=== PATIENT | female | born 1940 | race Caucasian/White ===

== ENCOUNTER 2019-03-13 12:06 | Observation (INO) | payer MEDICARE, OTHER ==
[2019-03-13 13:29] LABS: Bilirubin Negative (Negative); Blood, Urine Negative (Negative); Clarity Clear (Clear); Glucose, Urine (Dipstick) Normal (Negative); Leukocyte 250 Leu/uL (Negative); Nitrite Negative (Negative); Protein, Urine (Dipstick) Negative (Neg-Trace); RBC/HPF 0-3 HPF (0-3); Squamous Epithelial 0-3 HPF (0-3); Urobilinogen Normal mg/dL (Less than 2)
[2019-03-13 13:31] LABS: Bacteria/HPF 4+ HPF (None Seen)
[2019-03-13 13:46] LABS: #Basophils 0.1 thou/uL (0.0-0.2); #Eosinphils 0.2 thou/uL (0.0-0.7); #Lymphocytes 2.1 thou/uL (1.20-3.40); #Monocytes 0.5 thou/uL (0.11-0.59); #Neutrophils 4.2 thou/uL (1.40-6.50); %Basophils 1.5 % (0.0-1.0); %Eosinophils 2.8 % (0.0-10.0); %Lymphocytes 29.4 % (21.0-51.0); %Monocytes 6.9 % (0.0-10.0); %Neutrophils 59.4 % (42.0-75.0); Hemoglobin 15.4 g/dL (12.0-16.0); Mean Corpuscular HGB CONC 33.7 g/dL (32.0-36.0); Mean Corpuscular Hemoglobin 30.2 pg (27.0-31.0); Mean Corpuscular Volume 89.7 fL (78.0-98.0); Mean Platelet Volume 8.8 fL (7.4-10.4); Platelet Count 224 thou/uL (130-400); RBC Distribution Width 11.8 % (11.5-14.5); Red Blood Cell (RBC) Count 5.09 mill/uL (4.20-5.40); White Blood Cell (WBC) Count 7.1 thou/uL (4.8-10.8)
[2019-03-13 14:02] LABS: ALT (SGPT) 25 U/L (8-55); AST (SGOT) 20 U/L (5-34); Albumin 4.1 g/dL (3.4-4.8); Alkaline Phosphatase 97 U/L (40-110); Anion Gap 12 mmol/L (10-20); BUN (Urea Nitrogen) 11 mg/dL (9.8-20.1); Bilirubin, Total 0.4 mg/dL (0.2-1.2); Calc. Creatinine Clearance 0 mL/min (70-130); Calcium 9.3 mg/dL (7.8-10.44); Carbon Dioxide 26 mmol/L (23-31); Chloride 105 mmol/L (98-107); Estimated GFR-MDRD 82; Globulin 2.9 g/dL (2.4-3.5); Glucose 102 mg/dL (83-110); Potassium 3.8 mmol/L (3.5-5.1); Sodium 139 mmol/L (136-145)
[2019-03-13] MEDS ORDERED: Senokot S 8.6-50 MG TAB PO PRN (17:03)
[2019-03-13] MEDS ORDERED: Sodium Chloride 0.9% 1,000 ML IV SCH (17:15)
[2019-03-13] MEDS ORDERED: Aspirin 325 mg Enteric Coated Tablet PO SCH (18:00)
[2019-03-13] MEDS ORDERED: cefTRIAXone\\ROCEPHIN 1 GM in Sodium Chloride 0.9% 100 ML IVPB SCH (18:00)
[2019-03-13 21:38] VITALS: BMI 26.4
[2019-03-13] MEDS: Famotidine 20 MG TAB PO SCH (23:15)
[2019-03-13] MEDS: Meclizine HCl 25 MG TAB PO SCH (23:15)
[2019-03-13] MEDS: cefTRIAXone\\ROCEPHIN 1 GM in Sodium Chloride 0.9% 100 ML IVPB SCH (23:15)
[2019-03-13] MEDS: Acetaminophen With Codeine [Tylenol With Codeine #4] 1 TABLET PO PRN (23:42)
--- NOTE | 2019-03-14 02:24 | HP ---
PRIMARY CARE PHYSICIAN: None. NEUROLOGIST: Dr. Escalona. FIRE TENDER: Dr. Boone. CHIEF COMPLAINT: Dizziness, syncope. HISTORY OF PRESENT ILLNESS: Ms. Hinton is an 79-year-old female who reports to the emergency room today for evaluation of nausea, vomiting, dizziness, syncope. Daughter who is at bedside reports that she has been having increasing episodes of syncope when she goes from laying down to a sitting position. Reports that it is intermittent, but mostly with change in position. The daughter also reports that she has been having some fluctuations in her BP. Reports that she was recently discharged from [facility], was given a diagnosis of vertigo and sent home. Daughter is concerned that in addition to the vertigo she is having the syncopal episodes where everything goes black and she collapses. She did have an appointment tomorrow with Dr. Mallory, ENT for the vertigo, but as syncope episodes keep occurring, she brought her to the emergency room at [facility] for further evaluation. She did have a CT brain and a CTA. The patient with a history of hyperlipidemia, high cholesterol, hypertension, uterine cancer. CT of the brain and CTA report in the records from [facility] that daughter brought were negative for acute findings. The patient will be admitted to telemetry stroke for further evaluation. REVIEW OF SYSTEMS: Information collected from emergency record and from daughter and the patient reports profound dizziness, especially when she changes positions or tries to stand up or sit up. Reports nausea, vomiting. PAST MEDICAL HISTORY: See HPI. SURGICAL HISTORY: Colonoscopy, total hysterectomy. PSYCH HISTORY: History of dementia. SOCIAL HISTORY: Lives with her daughter. Denies any alcohol or drug use. No smoking history. ALLERGIES: HYDROCODONE, PHENERGAN, TRAMADOL. CURRENT MEDICATIONS: 1. Tylenol with Codeine 1 tablet p.o. q.6 hours as needed. 2. Amlodipine 5 mg p.o. b.i.d. 3. Prilosec 40 mg p.o. daily. 4. Levothyroxine 25 mcg p.o. daily. 5. Losartan 50 mg p.o. daily. 6. Antivert 25 mg p.o. t.i.d. 7. Namenda 10 mg p.o. b.i.d. 8. Metoprolol 100 mg p.o. daily. 9. Ondansetron 8 mg p.o. q.8 hours. 10. Solifenacin succinate 5 mg p.o. at bedtime. The patient is a full code. Daughter is surrogate decision maker. PHYSICAL EXAMINATION: VITAL SIGNS: Blood pressure 170/87, pulse is 80, respirations 14, temperature is 97.9, pO2 sats are 99% on room air. CONSTITUTIONAL: The patient appears ill, although in no apparent distress. She is alert and oriented x2. HEENT: Atraumatic and normocephalic. Eyes, pupils are equally round and reactive to light. Extraocular muscles are intact. The patient is blind in left eye. ENT: Mouth exam is normal. Mucous membranes are moist. NECK: Neck normal range of motion. Trachea is midline. RESPIRATORY: Chest breath sounds are clear. CHEST: Chest expansion is equal. CARDIOVASCULAR: Heart regular rate and rhythm. Heart sounds are normal. ABDOMEN: Nontender. Bowel sounds are heard. No CVA tenderness. BACK: Normal range of motion. EXTREMITIES: Upper extremity normal inspection, normal range of motion. Radial pulses are equal. Lower extremity normal inspection, normal range of motion. Pedal pulses are normal. There is no edema noted. NEUROLOGIC: The patient is oriented x2. No distress. Speech is normal. No focal motor or sensory deficits. SKIN: Warm, dry, normal in color that is visualized. PSYCHIATRIC: She has a normal affect. IMAGING: EKG in the emergency room showed normal sinus rhythm, beats 73, ST segments normal, T-waves normal. PLAN/ASSESSMENT: 1. Recurrent vertigo with syncope. We will obtain an MRI of the brain without contrast. We will ask Dr. Escalona to consult. Obtain an echocardiogram. CT and CTA have recently been done, records are with the patient. We have requested release of information for all the records from [facility] during the last hospitalization. Depending on Dr. Escalona's assessment, ENT followup may be recommended. We will continue the meclizine 25 mg q.8 hours as scheduled. Add some Zofran as needed for the nausea gentle hydration 75 mL per hour x1 bag. Aspirin 325 mg p.o. daily. 2. Urinary tract infection. Rocephin 1 g q.12. urine has been sent off for culture. 3. History of hypertension. We will trend. Add home medications. 4. History of dementia. This appears at baseline. We will add home medications. 5. History of gastroesophageal reflux disease. We will restart Protonix. 6. We have asked PT/OT to evaluate. 7. Gastrointestinal and deep venous thrombosis prophylaxis have been started. 8. Hospital course dependent on clinical findings. Job ID: [id number]
[2019-03-14 05:00] LABS: #Basophils 0.1 thou/uL (0.0-0.2); #Eosinphils 0.2 thou/uL (0.0-0.7); #Lymphocytes 1.9 thou/uL (1.20-3.40); #Monocytes 0.5 thou/uL (0.11-0.59); #Neutrophils 3.1 thou/uL (1.40-6.50); %Basophils 0.9 % (0.0-1.0); %Eosinophils 2.7 % (0.0-10.0); %Lymphocytes 33.5 % (21.0-51.0); %Monocytes 8.7 % (0.0-10.0); %Neutrophils 54.3 % (42.0-75.0); Hemoglobin 12.5 g/dL (12.0-16.0); Mean Corpuscular Hemoglobin 28.7 pg (27.0-31.0); Mean Corpuscular Volume 89.6 fL (78.0-98.0); Mean Platelet Volume 8.7 fL (7.4-10.4); Platelet Count 204 thou/uL (130-400); RBC Distribution Width 11.8 % (11.5-14.5); Red Blood Cell (RBC) Count 4.37 mill/uL (4.20-5.40); White Blood Cell (WBC) Count 5.7 thou/uL (4.8-10.8)
[2019-03-14 05:23] LABS: Anion Gap 9 mmol/L (10-20); BUN (Urea Nitrogen) 13 mg/dL (9.8-20.1); Calc. Creatinine Clearance 78 mL/min (70-130); Calcium 8.6 mg/dL (7.8-10.44); Carbon Dioxide 26 mmol/L (23-31); Chloride 105 mmol/L (98-107); Estimated GFR-MDRD 83; Glucose 97 mg/dL (83-110); Potassium 3.4 mmol/L (3.5-5.1); Sodium 137 mmol/L (136-145)
[2019-03-14] MEDS: Meclizine HCl 25 MG TAB PO SCH ×3 (06:17→21:56)
[2019-03-14] MEDS: Levothyroxine Sodium 25 MCG TAB PO SCH (06:17)
[2019-03-14] MEDS: Amlodipine 5 MG TAB PO SCH ×2 (08:32→21:57)
[2019-03-14] MEDS: Trospium 20 MG TAB PO SCH ×2 (08:32→21:57)
[2019-03-14] MEDS: Aspirin 325 mg Enteric Coated Tablet PO SCH (08:32)
[2019-03-14] MEDS: Enoxaparin Sodium 40 MG/0.4 ML SYRINGE SC SCH (08:32)
[2019-03-14] MEDS: Famotidine 20 MG TAB PO SCH ×2 (08:32→21:57)
[2019-03-14] MEDS: Losartan 25 MG TAB PO SCH (08:33)
--- NOTE | 2019-03-14 10:59 | MRI ---
MRI BRAIN WITHOUT CONTRAST: HISTORY: Dizziness, syncope COMPARISON: 01/15/2013 FINDINGS: No restricted diffusion is seen. There are multiple foci of T2 prolongation in the periventricular wh ite matter, consistent with chronic small vessel ischemic disease. The ventricular size is appropriate and the basilar cisterns are patent. No evidence of acute infarct, hemorrhage, midline shift or abnormal extra-axial fluid collections is seen. A partially empty sella is again seen. There is mucosal disease in the paranasal sinuses. IMPRESSION: No evidence of acute intracranial process.
[2019-03-14] MEDS: Acetaminophen With Codeine [Tylenol With Codeine #4] 1 TABLET PO PRN (12:15)
--- NOTE | 2019-03-14 19:37 | PDOC.HOSPP ---
- Subjective Encounter Date: 03/14/19 Encounter Time: 19:37 Subjective: Patient seen and examined for dizziness/syncope. No new syncope since admission. No new complaints. No overnight events - Objective Vital Signs & Weight: Vital Signs (12 hours) Temp Pulse Resp BP BP BP BP 03/14/19 15:30 97.6 F 56 L 16 124/57 L 03/14/19 11:25 98.1 F 69 18 169/74 H 03/14/19 09:55 170/81 H 179/88 H 03/14/19 08:20 98 F 79 18 153/70 H BP Pulse Ox 03/14/19 15:30 95 03/14/19 11:25 94 L 03/14/19 09:55 146/70 H 03/14/19 08:20 96 Weight Admit Weight 164 lb 1.6 oz Weight 164 lb 1.6 oz I&O: 03/13/19 03/14/19 03/15/19 06:59 06:59 06:59 Intake Total 525 Balance 525 Result Diagrams: 03/14/19 04:36 03/14/19 04:36 EKG Reviewed by me: Yes (Tele SR) Hospitalist ROS - Review of Systems Respiratory: denies: cough, dry, shortness of breath, hemoptysis, SOB with excertion, pleuritic pain, sputum, wheezing, other Cardiovascular: denies: chest pain, palpitations, orthopnea, paroxysmal noc. dyspnea, edema, light headedness, other - Medication Medications: Active Medications Generic Name Dose Route Start Last Admin Trade Name Freq PRN Reason Stop Dose Admin Amlodipine Besylate 5 mg 03/14/19 09:00 03/14/19 08:32 Norvasc PO 5 mg BID BEST Administration Aspirin 325 mg 03/14/19 09:00 03/14/19 08:32 Ecotrin PO 325 mg DAILY BEST Administration Enoxaparin Sodium 40 mg 03/14/19 09:00 03/14/19 08:32 Lovenox SC 40 mg 0900 BEST Administration Famotidine 20 mg 03/13/19 21:00 03/14/19 08:32 Pepcid PO 20 mg BID BEST Administration Ceftriaxone Sodium 1 gm/ 100 mls @ 200 mls/hr 03/13/19 23:00 03/13/19 23:15 Sodium Chloride IVPB 100 mls 2300 BEST Administration Levothyroxine Sodium 25 mcg 03/14/19 06:00 03/14/19 06:17 Synthroid PO 25 mcg 0600 BEST Administration Losartan Potassium 50 mg 03/14/19 09:00 03/14/19 08:33 Cozaar PO 50 mg DAILY BEST Administration Meclizine HCl 25 mg 03/13/19 22:00 03/14/19 14:22 Antivert PO 25 mg Q8HR BEST Administration Memantine 10 mg 03/14/19 09:00 03/14/19 08:32 Namenda PO 10 mg BID BEST Administration Metoprolol Succinate 100 mg 03/14/19 09:00 03/14/19 08:32 Toprol Xl PO 100 mg DAILY BEST Administration Pantoprazole Sodium 40 mg 03/14/19 09:00 03/14/19 08:33 Protonix PO 40 mg DAILY BEST Administration Acetaminophen With 0 each 03/13/19 22:41 03/14/19 12:15 Codeine [Tylenol PO 1 each With Codeine #4] 1 Q6HR PRN Administration Tablet Pain Trospium 20 mg 03/14/19 09:00 03/14/19 08:32 Trospium PO 20 mg BID BEST Administration - Exam General Appearance: NAD Neck: supple, no JVD Heart: RRR, no gallops Respiratory: CTAB, no rales Gastrointestinal: soft, non-distended, normal bowel sounds Extremities: no edema Hosp A/P - Plan DVT proph w/SCDs Recurrent Syncope ?etio - prob due to Orthostatic hypotension r/o Cardiac arrhythmia UTI Chronic dizziness/Vertigo Dementia HTN HLD GERD Physical deconditioning PLAN: EP consult per family req Cont Ceftriaxone for UTI Had event monitor 2 years ago - no arrhythmia per family report PT/OT Orthostatic vitals daily Cont other meds Negative stress test in September 2018 per family report
[2019-03-14] MEDS ORDERED: Potassium Chloride 10 MEQ TAB PO SCH (19:45)
[2019-03-14] MEDS ORDERED: hydrALAZINE 20 MG/ML VIAL SLOW IVP PRN (19:47)
[2019-03-14] MEDS: cefTRIAXone\\ROCEPHIN 1 GM in Sodium Chloride 0.9% 100 ML IVPB SCH (23:56)
--- NOTE | 2019-03-15 00:19 | CON ---
DATE OF CONSULTATION: 03/14/2019 CONSULTING PHYSICIAN: Hospitalist Service. IMPRESSION: Ms. Hinton has had multiple episodes of near syncope and syncopal episode suggestive of a cardiovascular etiology. Her neurologic workup is otherwise negative. PLAN: Continue cardiovascular monitoring and blood pressure monitoring. HISTORY OF PRESENT ILLNESS: Ms. Hinton is an 79-year-old woman whom I have seen in the office for dizziness. She reports multiple episodes of lightheadedness and syncope while at home. Her daughter notes that when she is in the midst of an episode, she becomes pale, cold, and clammy. She has collapsed on several occasions. There was no convulsive activity associated with these. She had a previous workup including a CT of the brain and CT angiogram, both of which were normal. She is currently on a monitor. Her orthostatic vital signs showed a 25-point drop in the systolic and 10-point drop in the diastolic pressures with standing. She was asymptomatic at that point. PHYSICAL EXAMINATION: Her neurologic exam is unremarkable. SUMMARY: We would continue blood pressure and EKG monitoring with more orthostatic changes to elicit symptomatology to better define her condition. Job ID: [id number]
[2019-03-15] MEDS ORDERED: Meclizine HCl 25 MG TAB ONE (05:43)
[2019-03-15] MEDS ORDERED: Levothyroxine Sodium 25 MCG TAB ONE (05:44)
[2019-03-15] MEDS: Aspirin 325 mg Enteric Coated Tablet PO SCH ×2 (09:17→12:40)
[2019-03-15] MEDS: Amlodipine 5 MG TAB PO SCH ×3 (09:17→21:29)
[2019-03-15] MEDS: Trospium 20 MG TAB PO SCH ×4 (09:17→21:29)
[2019-03-15] MEDS: Famotidine 20 MG TAB PO SCH ×3 (09:17→21:30)
[2019-03-15] MEDS: Losartan 25 MG TAB PO SCH ×2 (09:17→12:39)
[2019-03-15] MEDS: Enoxaparin Sodium 40 MG/0.4 ML SYRINGE SC SCH ×2 (10:52→12:40)
[2019-03-15] MEDS: Levothyroxine Sodium 25 MCG TAB PO SCH (12:39)
[2019-03-15] MEDS: Meclizine HCl 25 MG TAB PO SCH ×3 (12:39→21:29)
--- NOTE | 2019-03-15 14:52 | PDOC.HOSPP ---
- Subjective Encounter Date: 03/15/19 Encounter Time: 09:30 Subjective: Patient seen and examined for syncope/dizziness. No changes in symptoms. No new complaints. No overnight events - Objective Vital Signs & Weight: Vital Signs (12 hours) Temp Pulse Pulse Pulse Resp BP BP 03/15/19 12:41 66 03/15/19 11:25 97.6 F 67 16 03/15/19 10:24 72 73 185/87 H 195/88 H 03/15/19 09:36 72 70 154/74 H 183/80 H 03/15/19 07:48 97.9 F 66 16 BP Pulse Ox 03/15/19 12:41 03/15/19 11:25 140/68 94 L 03/15/19 10:24 03/15/19 09:36 03/15/19 07:48 154/73 H 95 Weight Admit Weight 164 lb 1.6 oz Weight 164 lb 1.6 oz I&O: 03/14/19 03/15/19 03/16/19 06:59 06:59 06:59 Intake Total 525 2420 Balance 525 2420 Result Diagrams: 03/14/19 04:36 03/14/19 04:36 Radiology Reviewed by me: Yes (MRI brain - no CVA) EKG Reviewed by me: Yes (Tele SR) Hospitalist ROS - Review of Systems Respiratory: denies: cough, dry, shortness of breath, hemoptysis, SOB with excertion, pleuritic pain, sputum, wheezing, other Cardiovascular: denies: chest pain, palpitations, orthopnea, paroxysmal noc. dyspnea, edema, light headedness, other Gastrointestinal: reports: nausea. denies: vomiting, abdominal pain, diarrhea, constipation, melena, hematochezia, other - Medication Medications: Active Medications Generic Name Dose Route Start Last Admin Trade Name Freq PRN Reason Stop Dose Admin Amlodipine Besylate 5 mg 03/14/19 09:00 03/15/19 12:41 Norvasc PO Not Given BID [facility] Aspirin 325 mg 03/14/19 09:00 03/15/19 12:40 Ecotrin PO Not Given DAILY [facility] Enoxaparin Sodium 40 mg 03/14/19 09:00 03/15/19 12:40 Lovenox SC Not Given 0900 [facility] Famotidine 20 mg 03/13/19 21:00 03/15/19 12:41 Pepcid PO Not Given BID [facility] Ceftriaxone Sodium 1 gm/ 100 mls @ 200 mls/hr 03/13/19 23:00 03/14/19 23:56 Sodium Chloride IVPB 100 mls 2300 [facility] Administration Levothyroxine Sodium 25 mcg 03/14/19 06:00 03/15/19 12:39 Synthroid PO Not Given 0600 [facility] Losartan Potassium 50 mg 03/14/19 09:00 03/15/19 12:39 Cozaar PO Not Given DAILY [facility] Meclizine HCl 25 mg 03/13/19 22:00 03/15/19 14:14 Antivert PO 25 mg Q8HR BEST Administration Memantine 10 mg 03/14/19 09:00 03/15/19 12:40 Namenda PO Not Given BID [facility] Metoprolol Succinate 100 mg 03/14/19 09:00 03/15/19 12:42 Toprol Xl PO Not Given DAILY [facility] Pantoprazole Sodium 40 mg 03/14/19 09:00 03/15/19 12:42 Protonix PO Not Given DAILY [facility] Acetaminophen With 0 each 03/13/19 22:41 03/14/19 12:15 Codeine [Tylenol PO 1 each With Codeine #4] 1 Q6HR PRN Administration Tablet Pain Trospium 20 mg 03/14/19 09:00 03/15/19 12:42 Trospium PO Not Given BID BEST - Exam General Appearance: NAD Heart: RRR, no gallops Respiratory: no wheezes, no rales, no ronchi Gastrointestinal: soft, non-distended, normal bowel sounds Extremities: no edema Hosp A/P - Plan DVT proph w/lovenox, DVT proph w/SCDs Recurrent Syncope ?etio - prob due to Orthostatic hypotension r/o Cardiac arrhythmia UTI Chronic dizziness/Vertigo Dementia HTN HLD GERD Physical deconditioning PLAN: Await EP input - Pt is NPO Cont IV Ceftriaxone for UTI Cont PT/OT Repeat Orthostatic later today Cont other meds Inpt Rehab eval
--- NOTE | 2019-03-15 17:47 | CON ---
DATE OF CONSULTATION: REQUESTING PHYSICIAN: Dr. Desir. REASON FOR REQUEST: Syncope. HISTORY OF PRESENT ILLNESS: Ms. Hinton is an 79-year-old with a history of Alzheimer's dementia, vertigo, colon cancer, hypertension, hypothyroidism, who was admitted to the hospital after a near syncopal episode. Apparently, she was at the breakfast table, talking with her son, became weak and dizzy and slumped over the table. She reportedly did not fully lose consciousness. She has had a near syncopal episode over approximately 3-year period and underwent reportedly essentially normal workup other than for vertigo and inner ear type disease. Currently, she states that she still has episodes of dizziness and blacking out when she sits up or goes to a near standing. PAST MEDICAL HISTORY: Significant for Alzheimer's dementia, colon cancer, diverticulitis, gastroesophageal reflux disease, hypertension, osteoarthritis, thyroid disease, and uterine cancer. MEDICATIONS: Include: 1. Tylenol with codeine. 2. Amlodipine. 3. Aspirin. 4. Esomeprazole. 5. Levothyroxine. 6. Losartan. 7. Memantine. 8. Metoprolol. 9. Celecoxib. 10. Potassium. 11. Pravastatin. ALLERGIES: SHE IS ALLERGIC TO PHENERGAN, HYDROCODONE, STATINS, TRAMADOL, AND DOXYCYCLINE. FAMILY HISTORY: No early coronary artery disease or sudden cardiac . SOCIAL HISTORY: She does not drink, smoke, uses illicit medications. REVIEW OF SYSTEMS: Reviewed. She denies nausea, vomiting, diarrhea, fever, chills, or change in vision or hearing. All others were negative other than included in the HPI. PHYSICAL EXAMINATION: VITAL SIGNS: She is afebrile. Pulse is 86, blood pressure 159/76. HEENT: Pupils equally round and react to light and accommodation. Extraocular movements are intact. Nose; midline septum. No rhinorrhea or epistaxis. Throat is moist erythema or exudate. NECK: Supple without lymphadenopathy, JVD, or goiter. HEART: Regular rate and rhythm without murmur, gallop, or rub. LUNGS: Clear to auscultation and percussion bilaterally. ABDOMEN: Soft, nontender, and nondistended. Present bowel sounds. EXTREMITIES: Without cyanosis, clubbing, or edema. NEUROLOGIC: Cranial nerves 2 through 12 are grossly intact. Motor strength 5/5 throughout. DIAGNOSTICS: Electrocardiogram, sinus rhythm, no significant ST or T-wave changes. Telemetry monitoring shows no significant arrhythmias. IMPRESSION: 1. Near syncope. 2. History of vertigo. 3. Alzheimer's dementia. RECOMMENDATIONS: Ms. Hinton has had multiple episodes of near syncope as well as a vertigo type symptoms. I do not see significant arrhythmic cause for this, particularly since she is asymptomatic with normal rhythm. I think her arrhythmia risk is low. If there is more concern for this, consideration could be given to an implantable monitor. However, I believe her symptoms are more likely related to either blood pressure or vertigo issues. Job ID: [id number]
[2019-03-15 17:52] LABS: Anion Gap 8 mmol/L (10-20); BUN (Urea Nitrogen) 11 mg/dL (9.8-20.1); Calc. Creatinine Clearance 78 mL/min (70-130); Calcium 9.2 mg/dL (7.8-10.44); Carbon Dioxide 30 mmol/L (23-31); Chloride 104 mmol/L (98-107); Estimated GFR-MDRD 83; Glucose 95 mg/dL (83-110); Potassium 3.6 mmol/L (3.5-5.1); Sodium 138 mmol/L (136-145)
[2019-03-16] MEDS: cefTRIAXone\\ROCEPHIN 1 GM in Sodium Chloride 0.9% 100 ML IVPB SCH (00:16)
[2019-03-16] MEDS: Levothyroxine Sodium 25 MCG TAB PO SCH (05:54)
[2019-03-16] MEDS: Meclizine HCl 25 MG TAB PO SCH ×2 (05:54→14:07)
[2019-03-16] MEDS: Aspirin 325 mg Enteric Coated Tablet PO SCH (08:28)
[2019-03-16] MEDS: Famotidine 20 MG TAB PO SCH (08:28)
[2019-03-16] MEDS: Amlodipine 5 MG TAB PO SCH (08:28)
[2019-03-16] MEDS: Losartan 25 MG TAB PO SCH (08:29)
[2019-03-16] MEDS: Trospium 20 MG TAB PO SCH (08:29)
[2019-03-16] MEDS: Enoxaparin Sodium 40 MG/0.4 ML SYRINGE SC SCH (08:29)
[2019-03-16] MEDS ORDERED: Ondansetron ODT 4 MG TAB PO SCH (13:15)
[2019-03-16 15:50] VITALS: BP 143/74; TEMP 97.9
--- NOTE | 2019-03-17 09:52 | DIS ---
DATE OF ADMISSION: 03/13/2019 DATE OF DISCHARGE: 03/16/2019 DISCHARGE DISPOSITION: Inpatient rehab. The patient was seen and examined on the day of discharge. Denies any new complaints. No significant improvement in vertigo/dizziness. DISCHARGE MEDICATIONS: 1. Omnicef 300 mg twice a day for next 3 days. 2. Meclizine 12.5 mg 3 times daily. All other home medications were left unchanged. BRIEF HOSPITAL COURSE: The patient is an 79-year-old female with chronic dizziness and vertigo, presented to the hospital on 14 March 2019 with dizziness with a syncopal episode. She was discharged from [facility] recently. Please refer to the history and physical for further details. The patient was admitted to the hospital with a diagnosis of syncope. She was monitored on telemetry without significant arrhythmia. She was evaluated by electrophysiology, Dr. Kapoor. Per Electrophysiology, arrhythmia risk is low. She was advised to follow up with Dr. Boone as outpatient for possible event monitor versus outpatient loop recorder. The patient was also evaluated by Neurology, Dr. Escalona, who thinks the patient probably has cardiovascular etiology. Her orthostatic vitals were essentially negative. She was also diagnosed with UTI. However, urine cultures showed 10,000 to 25,000 normal skin tom. It is unclear whether the sample was obtained before the antibiotics. Vitamin B12 was 548, folic acid was 17, TSH was 2.5 with potassium 3.4. PLAN: Plan of care was discussed with the daughter in detail. She stated understanding. FINAL DIAGNOSES: 1. Recurrent syncope of unclear etiology. 2. Chronic dizziness with vertigo, recently worsened. 3. Urinary tract infection, present on admission. 4. Dementia. 5. Hypertension. 6. Hypokalemia, replaced. 7. Gastroesophageal reflux disease. 8. Physical deconditioning. 9. Plan of care was discussed with the family in detail, they stated understanding. Job ID: [id number]
== END 2019-03-16 16:31 ==
LOC: ERS 12:06 → INTOOBSV 20:30 → 2NO 20:30
PROVIDERS: ADMIT Internal Medicine; ATTEND Internal Medicine
DX: R55 Syncope and collapse (principal); R42 Dizziness and giddiness; N39.0 Urinary tract infection, site not specified; I10 Essential (primary) hypertension; K21.9 Gastro-esophageal reflux disease without esophagitis; E87.6 Hypokalemia; R53.81 Other malaise; Z79.899 Other long term (current) drug therapy; Z88.5 Allergy status to narcotic agent; Z88.8 Allergy status to other drugs, medicaments and biological substances
CPT/HCPCS: 51701; 70551; 80048 ×2; 80053; 82607; 82746; 83735; 84443; 84484; 85025 ×2; 87086; 93005; 93306; 96361; 96365; 96372 ×3; 96376 ×2; 97110 ×2; 97139 ×4; 97530; 99285; G0378 ×5; 36415; 81003; 81015; A4353; J0696; J1650; J3490; J8597; Q0162

== ENCOUNTER 2025-03-15 09:14 | Day surgery (SDC) | payer OTHER ==
[2025-03-14 11:53] VITALS: BMI 25.6
[2025-03-15] MEDS ORDERED: GLYCOPYRROLATE/PF 0.2 MG/ML VIAL ONE (11:17)
[2025-03-15] MEDS ORDERED: PROPOFOL 200 MG/20 ML VIAL ONE (11:53)
== END 2025-03-15 12:58 | disposition home or self-care (01) ==
LOC: SDC 09:14
PROVIDERS: ATTEND Internal Medicine Gastroenterology
PROC: 0DB38ZX Excision of Lower Esophagus, Via Natural or Artificial Opening Endoscopic, Diagnostic (ICD-10-PCS; principal; 2025-03-15)
DX: K21.00 Gastro-esophageal reflux disease with esophagitis, without bleeding (principal); K44.9 Diaphragmatic hernia without obstruction or gangrene; D50.9 Iron deficiency anemia, unspecified; E78.5 Hyperlipidemia, unspecified; E03.9 Hypothyroidism, unspecified; Z90.710 Acquired absence of both cervix and uterus; Z88.5 Allergy status to narcotic agent; Z88.8 Allergy status to other drugs, medicaments and biological substances; Z79.890 Hormone replacement therapy; Z79.899 Other long term (current) drug therapy
CPT/HCPCS: 43239; J2704; J3490; 88305; 88312